=== PATIENT | female | born 1965 | race Two or more races ===

== ENCOUNTER 2017-09-30 18:29 | Emergency (ER) | payer OTHER ==
[~2017-09-30] VITALS: Ht 157.5 cm; Wt 62.6 kg
[~2017-09-30 18:29] MED LIST: TRAMADOL HCL50 MG ORAL; TYLENOL325 MG ORAL; XANAX0.25 MG ORAL
[2017-09-30 18:40] VITALS: BP 145/65
[2017-09-30 18:59] LABS: APPEARANCE,URINE CLEAR; KETONES,URINE NEGATIVE (NEGATIVE); LEUKOCYTE ESTERASE ,URINE 1+ (NEGATIVE); NITRITE,URINE NEGATIVE (NEGATIVE); PH,URINE 7 (4.5-8.0); PROTEIN,URINE NEGATIVE (NEGATIVE); UROBILINOGEN,URINE NORMAL MG/DL (0.0-1.0)
[2017-09-30 19:06] LABS: RBC,URINE 0-2 /HPF (0 - 2)
[2017-09-30 19:07] LABS: BACTERIA,URINE FEW /HPF; SQUAMOUS EPITHELIAL CELL,UR FEW /LPF (NONE/OCC)
[2017-09-30] MEDS ORDERED: Phenazopyridine 200mg tab ORAL ONE (19:15)
[2017-09-30] MEDS ORDERED: Ketorolac 60mg Inj IM ONE (19:45)
--- NOTE | 2017-09-30 19:48 | Emergency Room Report ---
History of Present Illness General Chief Complaint: Female Urogenital Problems Source: Patient Present Illness HPI 52 YO Female presents to the ED C/O dysuria rated as 9/10 in severity x 2 weeks with progression to intermittent low back pain described as a deep dull ache and exacerbated with twisting of the torso, or leaning slightly back in the sitting position. denies fevers, chills, nausea, vomiting, cough, recent URI, rashes, genital lesions, or abdominal pain. pt. reports mild mid lower abdominal distended feeling and frequency. denies hematuria, constipation or diarrhea. Denies midline back pain. Denies trauma or fall. Denies CP, Palpitations, LOC, AMS, dizziness, Changes in Vision, Sensation, paresthesias, or a sudden severe headache. Allergies: Coded Allergies: No Known Allergies (Unverified , 09/25/16) Patient History Past Medical History: see triage record, GERD Past Surgical History: none Pertinent Family History: none Now: No Reviewed Nursing Documentation: PMH: Agreed, PSxH: Agreed Nursing Documentation-PMH Past Medical History: No Stated History Review of Systems All Other Systems: negative except mentioned in HPI Physical Exam Vital Signs Date Time Temp Pulse Resp B/P (MAP) Pulse Ox O2 Delivery O2 Flow Rate FiO2 09/30/17 18:40 97.7 85 18 145/65 100 Room Air Sp02 EP Interpretation: reviewed, normal General Appearance: no apparent distress, alert, GCS 15, non-toxic Head: normocephalic, atraumatic Eyes: bilateral eye normal inspection, bilateral eye PERRL ENT: hearing grossly normal, normal voice Neck: full range of motion, supple/symm/no masses Respiratory: lungs clear, normal breath sounds, speaking full sentences Cardiovascular #1: regular rate, rhythm Gastrointestinal: normal bowel sounds, non tender, soft, no guarding, no rebound Rectal: deferred Genitourinary: normal inspection, no CVA tenderness Musculoskeletal: back normal, gait/station normal, normal range of motion, non- tender, no calf tenderness, other - FROM , twisting of the torso ellicited pain. otherwise no apprecable TTP Neurologic: alert, oriented x3, responsive, motor strength/tone normal, sensory intact, normal gait, speech normal Skin: normal color, no rash, warm/dry, well hydrated Medical Decision Making PA Attestation Dr. Costa is my supervising Physician whom patient management has been discussed with. Diagnostic Impression: Primary Impression: Dysuria Additional Impression: Back pain Qualified Codes: M54.5 - Low back pain ER Course 52 YO Female presents to the ED C/O dysuria rated as 9/10 in severity x 2 weeks with progression to intermittent low back pain described as a deep dull ache and exacerbated with twisting of the torso, or leaning slightly back in the sitting position. denies fevers, chills, nausea, vomiting, cough, recent URI, rashes, genital lesions, or abdominal pain. pt. reports mild mid lower abdominal distended feeling and frequency. denies hematuria, constipation or diarrhea. Denies midline back pain. Denies trauma or fall. Denies CP, Palpitations, LOC, AMS, dizziness, Changes in Vision, Sensation, paresthesias, or a sudden severe headache. Ddx considered but are not limited to UTi , Pyelo, STI, Stone, Cystitis Vital signs: are WNL, pt. is afebrile, NAD, non-toxic in appearance. H&PE are most consistent with possible UTI, HPI not consistent with renal stones however will treat for pyelo if urine shows presence of bacteria and inflammatory markers. ORDERS: - UA labs are attached : Most indicative of contamination: presence of equal amounts of bacteria and squamous cells, no elevation in inflammatory markers, nitrite negative. no RBC's or occult blood to suggest stones. ED INTERVENTIONS: -Pyridium PO -Toradol IM DISCHARGE: At this time pt. is stable for d/c to home. Will provide printed patient care instructions, and any necessary prescriptions. Care plan and follow up instructions have been discussed with the patient prior to discharge. Labs Test 09/30/17 18:44 Urine Color Pale yellow Urine Appearance Clear Urine pH 7 (4.5-8.0) Urine Specific [place] 1.010 (1.005-1.035) Urine Protein Negative (NEGATIVE) Urine Glucose (UA) Negative (NEGATIVE) Urine Ketones Negative (NEGATIVE) Urine Occult Blood Negative (NEGATIVE) Urine Nitrite Negative (NEGATIVE) Urine Bilirubin Negative (NEGATIVE) Urine Urobilinogen Normal MG/DL (0.0-1.0) Urine Leukocyte Esterase 1+ (NEGATIVE) Urine RBC 0-2 /HPF (0 - 2) Urine WBC 2-4 /HPF (0 - 2) Urine Squamous Epithelial Cells Few /LPF (NONE/OCC) Urine Bacteria Few /HPF (NONE) Last Vital Signs Date Time Temp Pulse Resp B/P (MAP) Pulse Ox O2 Delivery O2 Flow Rate FiO2 09/30/17 18:40 97.7 85 18 145/65 100 Room Air Disposition: HOME, SELF-CARE Condition: Stable Scripts Ibuprofen* (MOTRIN*) 400 Mg Tablet 400 MG ORAL THREE TIMES A DAY, #30 TAB 0 Refills Prov: Amanda Gutierrez 09/30/17 Phenazopyridine Hcl* (PYRIDIUM*) 200 Mg Tablet 200 MG ORAL THREE TIMES A DAY for 3 Days, #10 TAB 0 Refills Prov: Amanda Gutierrez 09/30/17 Referrals: [facility],REFERRING (PCP) Patient Instructions: Back Pain, Adult, [id number], Dysuria Additional Instructions: Take medications as directed. Follow up with a Primary Care Provider in 3-5 days, even if your symptoms have resolved. --Please review list of primary care clinics, if you do not already have a primary care provider Pyridium will cause your urine to change color (Red/[place]), this is a normal side effect of the medication. Return sooner to ED if new symptoms occur, or current symptoms become worse. - Please note that this Emergency Department Report was dictated using [employer] physician technology software, occasionally this can lead to erroneous entry secondary to interpretation by the dictation equipment. Amanda Gutierrez Sep 30, 2017 19:48
[2017-09-30] MEDS ORDERED: IBUPROFEN400 MG ORAL (20:18)
[2017-09-30] MEDS ORDERED: PHENAZOPYRIDIN200 MG ORAL (20:18)
[2017-09-30 20:22] VITALS: BP 139/67
[2017-09-30 20:26] VITALS: BP 145/65
== END 2017-09-30 20:26 | disposition home or self-care (01) ==
LOC: EMR 19:40
DX: R30.0 Dysuria (principal); M54.9 Dorsalgia, unspecified; K21.9 Gastro-esophageal reflux disease without esophagitis
CPT/HCPCS: 81003; 96372; 99284